=== PATIENT | male | born 1985 | race Two or more races ===

== ENCOUNTER 2020-12-17 22:43 | Emergency (ER) | payer SELFPAY ==
[~2020-12-17] VITALS: Ht 167.6 cm; Wt 80.7 kg
[2020-12-17] MEDS ORDERED: LIDOCAINE-MPF 1%, 5ML INFIL ONE (23:30)
--- NOTE | 2020-12-18 01:09 | NUR ---
PT TO ROOM FROM LOBBY AT THIS TIME.
[2020-12-18] MEDS ORDERED: LIDOCAINE-MPF 1%, 5ML ONE (01:11)
--- NOTE | 2020-12-18 03:05 | NUR ---
Break RN: I & D done. dressing applied. patient discharged with prescription and instruction. verbalized understanding.
[2020-12-18 03:06] VITALS: BP 128/78
== END 2020-12-18 03:09 | disposition home or self-care (01) ==
LOC: ED 12-18 02:55
DX: L02.212 Cutaneous abscess of back [any part, except buttock and flank] (principal)
CPT/HCPCS: 10060

== ENCOUNTER 2020-12-19 18:06 | Emergency (ER) | payer SELFPAY ==
[~2020-12-19] VITALS: Ht 167.6 cm; Wt 80.9 kg
[2020-12-19 18:08] VITALS: BP 128/67
== END 2020-12-19 18:52 | disposition home or self-care (01) ==
LOC: ED 18:46
DX: Z48.01 Encounter for change or removal of surgical wound dressing (principal)
CPT/HCPCS: 99282

== ENCOUNTER 2020-12-21 19:18 | Emergency (ER) | payer SELFPAY ==
[~2020-12-21] VITALS: Ht 167.6 cm; Wt 81.2 kg
[2020-12-21 19:25] VITALS: BP 134/65
== END 2020-12-21 20:28 | disposition home or self-care (01) ==
LOC: ED 20:09
DX: Z48.01 Encounter for change or removal of surgical wound dressing (principal)
CPT/HCPCS: 99281